=== PATIENT | female | born 1955 | race African-American/Black ===

== ENCOUNTER 2016-11-28 09:54 | Inpatient (IN) | payer BC ==
[~2016-11-28 09:54] MED LIST: CHLORHEXIDINE GLUC HIBICLENS 118 ML BTL TP ONE; ceFAZolin 2 GM/DEXTROSE 100 ML IV ONE
[2016-11-28] MEDS ORDERED: PROPOFOL/EMULSION 500 MG/50 ML BOTTLE IV ONE ×4 (10:06→15:15)
[2016-11-28] MEDS ORDERED: ALBUMIN 5% 250 ML BOTTLE IV ONE (10:09)
[2016-11-28] MEDS ORDERED: DEXMEDETOMIDINE HCL 200 MCG/2 ML VIAL IV ONE (10:11)
[2016-11-28] MEDS ORDERED: fentaNYL 100 MCG/2 ML INJ ONE ×4 (10:21→17:23)
[2016-11-28] MEDS ORDERED: THROMBIN (BOVINE) 5,000 UNIT VIAL TP ONE ×2 (10:23→13:39)
[2016-11-28] MEDS ORDERED: BUPIVACAINE/EPI 0.25% 30 ML SDV ONE (10:23)
[2016-11-28] MEDS ORDERED: BUPIVACAINE 0.25% 30 ML SDV ONE (10:23)
[2016-11-28] MEDS ORDERED: BACITRACIN 50,000 UNITS/10 ML SYR IRR ONE ×2 (10:24→13:40)
[2016-11-28] MEDS ORDERED: LIDOCAINE 1% 2 ML INJ ONE (10:33)
[2016-11-28] MEDS ORDERED: CEFAZOLIN 2 GM/DEXTROSE/100 ML BAG IV ONE (10:40)
[2016-11-28] MEDS ORDERED: LIDOCAINE 1% 2 ML INJ ID PRN (10:51)
[2016-11-28] MEDS ORDERED: LR 1,000 ML IV ONE (10:51)
[2016-11-28 11:14] LABS: ANION GAP 13 mEq/L (8-16); CALCIUM 9.6 mg/dL (8.5-10.4); CARBON DIOXIDE 17 mEq/l (22-31); CHLORIDE 109 mEq/L (97-110); CREATININE 0.7 mg/dL (0.6-1.0); GLOMERULAR FILTRATION RATE > 60; GLUCOSE 85 mg/dL (70-100); POTASSIUM 4.9 mEq/L (3.5-5.2); SODIUM 139 mEq/L (134-144); SPECIMEN HEMOLYSIS 151
[2016-11-28] MEDS ORDERED: MIDAZOLAM 2 MG/2 ML VIAL ONE ×2 (11:20→12:49)
--- NOTE | 2016-11-28 11:25 | PDANEPAE ---
ANE Past Medical History - Cardiovascular History Hx Hypertension: Yes Hx Arrhythmias: Yes Hx Chest Pain: No Hx Coronary Artery / Peripheral Vascular Disease: No Hx Palpitations: Yes - Pulmonary History Hx COPD: Yes Hx Asthma/Reactive Airway Disease: No Hx Recent Upper Respiratory Infection: No Hx Oxygen in Use at Home: No - Neurologic History Hx Cerebrovascular Accident: No Hx Seizures: No Hx Dementia: No - Endocrine History Hx Diabetes: No - Renal History Hx Renal Disorders: Yes - Liver History Hx Hepatic Disorders: No - Neurological & Psychiatric Hx Hx Neurological and Psychiatric Disorders: Yes - Cancer History Hx Cancer: Yes - Congenital Disorder History Hx Congenital Disorders: No - GI History Hx Gastrointestinal Disorders: Yes - Chronic Pain History Chronic Pain: Yes (neck, radiates down shoulders) ANE Review of Systems - Exercise capacity METS (RN): 4 METS ANE Patient History - Allergies Allergies/Adverse Reactions: No Known Allergies Allergy (Verified 11/21/16 11:11) - Home Medications Home Medications: Effexor 11/21/16 [Last Taken 11/27/16] GABAPENTIN 11/21/16 [Last Taken 11/27/16] HCTZ (*) 11/21/16 [Last Taken 11/28/16 08:00] Hydroxyzine HCl 11/21/16 [Last Taken 11/26/16] Lisinopril 11/21/16 [Last Taken 11/28/16 08:00] Losartan Potassium 11/21/16 [Last Taken 11/28/16 08:00] Norvasc 11/21/16 [Last Taken 11/28/16 08:00] PRILOSEC 11/21/16 [Last Taken 11/27/16] CHLOR-TRIMETON 4 mg PO PRN 11/28/16 [Last Taken 11/28/16] - NPO status NPO Since - Liquids (Date): 11/28/16 NPO Since - Liquids (Time): 08:00 NPO Since - Solids (Date): 11/27/16 NPO Since - Solids (Time): 20:00 - Smoking Hx Smoking Status: Light smoker - Family Anes Hx Family Hx Anesthesia Complications: none ANE Labs/Vital Signs - Labs Result Diagrams: 11/28/16 10:40 - Vital Signs Blood Pressure: 198/89 Heart Rate: 70 Respiratory Rate: 16 O2 Sat (%): 97 Height: 154.94 cm Weight: 58.967 kg ANE Physical Exam - Airway Mallampati Score: Class 1 Mouth exam: dentures - Pulmonary Pulmonary: no respiratory distress - Cardiovascular Cardiovascular: regular rate and rhythym - ASA Status ASA Status: III ANE Anesthesia Plan Anesthesia Plan: general endotracheal anesthesia Lines/Monitors: arterial line, additional IV Specialized Airway: video laryngoscope
[2016-11-28] MEDS ORDERED: CITRATE DEXTROSE SOLN 500 ML BAG ONE ×2 (11:31→13:52)
[2016-11-28] MEDS ORDERED: ROCURONIUM 50 MG/5 ML VIAL ONE (12:29)
[2016-11-28] MEDS ORDERED: ONDANSETRON 4 MG/2 ML VIAL ONE (12:29)
[2016-11-28] MEDS ORDERED: LIDOCAINE 2% 5 ML SDV ONE (12:29)
[2016-11-28] MEDS ORDERED: epHEDrine SULFATE 10 MG/ML SYR ONE (12:40)
--- NOTE | 2016-11-28 14:53 | GOP ---
[f rep st] OPERATIVE REPORT DATE OF OPERATION: 11/28/2016 SURGEON: Rainer Aguayo MD COOPER HELPER: Noe Ramos PA-C. ANESTHESIA: General endotracheal. 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 Severe cervical stenosis. Progressive loss of function. 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 Severe cervical stenosis. Progressive loss of function. PROCEDURE PERFORMED: 1. Complete C4-5 and C5-6 anterior cervical diskectomy and arthrodesis with 2 structural PEEK interbody spacers and local autograft. 2. Partial C5 vertebral corpectomy for decompression of spinal canal/spinal cord. 3. Placement of a 43 mm CastleLoc-P LnK anterior cervical plate from C4 through C6. 4. Use of intraoperative microscopy and fluoroscopy. FINDINGS: ESTIMATED BLOOD LOSS: 50 cc. INDICATIONS: The patient is a 60-year-old woman with progressive myelopathic symptoms secondary to multilevel cervical spondylosis and severe cervical stenosis with spinal cord compression. She presents now for anterior posterior decompression and stabilization. DESCRIPTION OF PROCEDURE: After informed consent was obtained, the patient was taken to the operating room and placed in the supine position. The anterior cervical region was prepped and draped in a sterile fashion. After fluoroscopic localization of the correct level, the subcutaneous and intramuscular tissues were infiltrated with local anesthesia. A midline linear incision was then created at the level of the C5 vertebral body. This was carried down to the platysmal layer, which was then incised using the monopolar electrocautery and carried in the avascular plane between the sternocleidomastoid and carotid sheath laterally and the strap muscles, trachea, and esophagus medially, down to the prevertebral fascia, which was carefully incised with Metzenbaum scissors. The C4-5 and C5-6 interspaces were identified and re-verified using intraoperative fluoroscopy. The large osteophytes were carefully removed and harvested for local autograft. The distraction pins were then serially inserted, first at C4-5, then C5-6 with a slight amount of distraction during which time complete diskectomies were performed with preparation of the endplates and removal of the posteriorly protruding osteophytes and posterior longitudinal ligament. There was an extensive amount of drilling required for the superior and inferior endplates of both levels and this amounted to approximately 50% of the vertebral body being drilled away at C5 for a partial C5 vertebral corpectomy in order to adequately decompress the spinal canal and spinal cord. There was quite a large osteophyte which may have been part of the pedicle on the right at the C5- 6 level that was meticulously dissected out and then partially left in place, because I felt that the root was somewhat wrapped around it, and I would cause injury to it if I was more aggressive. The thecal sac was widely decompressed, and the neural foramen was widely decompressed as well bilaterally at both levels. Following this, the wound was copiously irrigated with antibiotic irrigation, and meticulous hemostasis was achieved. The remaining endplates were carefully prepared, and an appropriately sized 11 mm structural PEEK interbody spacer was packed with local autograft in the center. It was then placed in the interspace at C4-5 and C5-6 under fluoroscopic image guidance. The distraction was then removed, and an appropriately sized 43 mm CastleLoc-P LnK anterior cervical plate was then placed and secured with 14 mm self-drilling screws. Following re-verification of good position of the plate screws and interbody spacers using biplanar fluoroscopy, the locking mechanisms were engaged. A drain was placed. The uncovertebral joints were gently packed with residual local autograft along with the central hole of the plate, and the wound was closed in layered fashion using interrupted Vicryl sutures, followed by Steri- Strips on the skin. COMPLICATIONS: None. DISPOSITION: The patient is currently in the process of being repositioned for the posterior portion of the operation. /[id number]/MODL MTDD
--- NOTE | 2016-11-28 15:03 | GOP ---
[f rep st] OPERATIVE REPORT DATE OF OPERATION: 11/28/2016 SURGEON: Rainer Aguayo MD BENCH JEWELER: Noe Ramos PA-C. ANESTHESIA: General endotracheal. 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 Severe cervical stenosis. Progressive loss of function. 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 Severe cervical stenosis. Progressive loss of function. PROCEDURE PERFORMED: 1. C4 through 6 posterior cervical laminectomy for decompression of spinal cord. 2. C4 through 6 posterior segmental (lateral mass screw) fixation and posterolateral fusion with local autograft. 3. Use of intraoperative microscopy and fluoroscopy. FINDINGS: ESTIMATED BLOOD LOSS: 100 cc. COMPLICATIONS: None. INDICATIONS: The patient is a 60-year-old woman with progressive myelopathic symptoms secondary to multilevel cervical spondylosis and severe cervical stenosis with spinal cord compression. She presents now for anterior posterior decompression and stabilization. DESCRIPTION OF PROCEDURE: After the anterior portion of the procedure was completed, the patient was repositioned prone with the head in the Starks hogshead hooper. The posterior cervical region was prepped and draped in a sterile fashion. After fluoroscopic localization of the correct levels, the subcutaneous and intramuscular tissues were infiltrated with local anesthesia. A midline linear incision was then created from approximately C4 through C6. This was carried down the fascial layer, which was then incised using the monopolar electrocautery and carried in the subperiosteal plane along the spinous processes and out the lamina bilaterally. Intraoperative fluoroscopy was again utilized to verify the correct levels. Following this, the dissection was carried out over the facet joints. Intraoperative fluoroscopy was again utilized to verify the correct levels. Following this, lateral mass screw fixation was placed in a standard fashion at C4, C5 and C6 bilaterally. Each individual screw was tested neurophysiologically with monopolar electrical stimulation and interpretation of the potentials by the surgeon. Biplanar fluoroscopy was utilized to verify good position of the screws. The rods were then placed and secured under maximal lordosis. A laminectomy defect was then created from C4 through C6 using the Meteor drill system with a matchstick fluted bur and the Kerrison rongeurs. Meticulous hemostasis was achieved. The wound was copiously irrigated, and the facet joints and lateral portion of the lateral masses were then extensively decorticated, and the local autograft from the laminectomy defects was placed out laterally for a posterolateral fusion from C4 through C6. Following more copious irrigation and meticulous hemostasis , a drain was placed, and the wound was closed in a layered fashion using interrupted Vicryl sutures, followed by Steri-Strips on the skin. DISPOSITION: The patient is currently in the process of being repositioned for extubation. /[id number]/MODL MTDD
[2016-11-28] MEDS ORDERED: SUGAMMADEX SODIUM 200 MG/2 ML VIAL IVP ONE (15:36)
[2016-11-28] MEDS ORDERED: PROMETHAZINE HCL 25 MG/ML INJ IVP PRN (15:40)
[2016-11-28] MEDS ORDERED: NALOXONE HCL 0.4 MG/ML INJ IVP PRN ×2 (15:40→16:01)
[2016-11-28] MEDS ORDERED: ONDANSETRON 4 MG/2 ML VIAL IVP PRN (15:40)
[2016-11-28] MEDS ORDERED: DEXAMETHASONE 4 MG/ML VIAL IVP PRN (15:40)
[2016-11-28] MEDS ORDERED: MEPERIDINE 25 MG/ML SYR IVP PRN (15:40)
[2016-11-28] MEDS ORDERED: ALBUTEROL 3 ML DEYVIAL IH PRN (15:40)
--- NOTE | 2016-11-28 16:00 | PDHPUP ---
History & Physical Update H&P update statement: This history and physical update is based on an assessment of the patient which was completed after admission or registration (within 24 hours), but prior to the surgery/procedure. H&P update: H&P reviewed & patient examined, no change in patient's condition since H&P completed
[2016-11-28] MEDS ORDERED: diphenhydrAMINE 25 MG CAP PO PRN (16:01)
[2016-11-28] MEDS ORDERED: BISACODYL 10 MG SUPP PR PRN (16:01)
[2016-11-28] MEDS ORDERED: ONDANSETRON DISINTEGRATING 4 MG TAB PO PRN (16:01)
[2016-11-28] MEDS ORDERED: HYDROCODONE/APAP 5/325 TAB PO PRN (16:01)
[2016-11-28] MEDS ORDERED: MAGNESIUM HYDROXIDE 30 ML UDCUP PO PRN (16:01)
[2016-11-28] MEDS ORDERED: oxyCODONE IR 5 MG TAB PO PRN (16:01)
[2016-11-28] MEDS ORDERED: LACTULOSE 20 GM/30 ML UDCUP PO PRN (16:01)
--- NOTE | 2016-11-28 16:08 | SOAPPROG ---
SOAP Progress Note Assessment/Plan: Assessment: 60 yo F sp C4-6 ACDF and C4-6 posterior fusion Plan: stable hard collar at all times lovenox on POD #3 please call with neuro changes 11/28/16 16:07 Subjective: + neck pain, no arm pain Objective: Vital Signs Temp Pulse Resp BP Pulse Ox 37.1 C 70 16 198/89 H 97 11/28/16 10:22 11/28/16 11:25 11/28/16 11:25 11/28/16 11:25 11/28/16 11:25 Laboratory Results 11/28/16 10:40 somnolent PERRL, no facial droop TAYLER x 4 + light touch ICD10 Worksheet Patient Problems: Problems Problem Status Onset Fusion of spine of cervical region Acute - ICD10 Problem Qualifiers (1) Fusion of spine of cervical region
[2016-11-28] MEDS ORDERED: LABETALOL HCL 5 MG/ML 20 ML MDV IVP PRN (16:12)
[2016-11-28] MEDS ORDERED: ENALAPRILAT DIHYDRATE 1.25 MG/ML VIAL IVP PRN (16:12)
--- NOTE | 2016-11-28 16:12 | POSTANESTH ---
Post Anesthetic Evaluation Cardiovascular Status: Normal, Stable Respiratory Status: Normal, Stable Level of Consciousness/Mental Status: Can Participate in Eval Pain Control: Adequate, Prn Tx Ordered Nausea/Vomiting Control: Adequate, Prn Tx Ordered Complications Possibly Related to Anesthesia: None Noted
[2016-11-28] MEDS: fentaNYL 100 MCG/2 ML INJ IVP PRN ×4 (16:17→17:30)
[2016-11-28] MEDS ORDERED: ENALAPRILAT DIHYDRATE 1.25 MG/ML VIAL ONE (16:22)
[2016-11-28] MEDS ORDERED: HYDROmorphONE/DILAUDID 1 MG/ML SYR ONE (16:39)
[2016-11-28] MEDS ORDERED: DIAZEPAM 10 MG/2 ML SYR ONE (16:47)
[2016-11-28] MEDS: DIAZEPAM 10 MG/2 ML SYR IVP PRN ×2 (17:26→23:47)
[2016-11-28] MEDS: HYDROmorphONE/DILAUDID 6 MG/30 ML PCA IV PRN (17:51)
[2016-11-28] MEDS: NS 1,000 ML IV SCH (18:04)
[2016-11-28] MEDS: ceFAZolin 2 GM/DEXTROSE 100 ML IV SCH (20:29)
[2016-11-28] MEDS: SENNOSIDES/DOCUSATE SODIUM TAB PO SCH (20:32)
[2016-11-28] MEDS: FAMOTIDINE 20 MG TAB PO SCH (20:33)
[2016-11-28] MEDS: morphINE SR 15 MG TAB PO SCH (20:33)
[2016-11-28] MEDS: ACETAMINOPHEN 500 MG TAB PO SCH (23:46)
[2016-11-28] MEDS: POLYETHYLENE GLYCOL 3350 17 GM PKT PO SCH (23:47)
[2016-11-29] MEDS: HYDROmorphONE/DILAUDID 6 MG/30 ML PCA IV PRN ×2 (02:35→16:00)
[2016-11-29] MEDS: ceFAZolin 2 GM/DEXTROSE 100 ML IV SCH (02:36)
[2016-11-29] MEDS: METHOCARBAMOL 750 MG TAB PO PRN ×2 (02:51→18:31)
[2016-11-29] MEDS: ONDANSETRON 4 MG/2 ML VIAL IVP PRN ×3 (04:56→17:35)
[2016-11-29] MEDS: ACETAMINOPHEN 500 MG TAB PO SCH ×3 (05:56→21:19)
[2016-11-29 06:05] LABS: ANION GAP 11 mEq/L (8-16); CALCIUM 7.9 mg/dL (8.5-10.4); CARBON DIOXIDE 18 mEq/l (22-31); CHLORIDE 111 mEq/L (97-110); CREATININE 0.5 mg/dL (0.6-1.0); GLOMERULAR FILTRATION RATE > 60; GLUCOSE 110 mg/dL (70-100); POTASSIUM 3.1 mEq/L (3.5-5.2); SODIUM 140 mEq/L (134-144)
[2016-11-29 06:12] LABS: HEMATOCRIT 34.8 % (38.0-47.0); HEMOGLOBIN 11.5 g/dL (12.6-16.3); MEAN CELL HEMOGLOBIN 30.7 pg (27.9-34.1); MEAN CELL VOLUME 92.8 fL (81.5-99.8); RED BLOOD CELL COUNT 3.75 10^6/uL (4.18-5.33); RED CELL DISTRIBUTION WIDTH 16.9 % (11.5-15.2)
[2016-11-29] MEDS: hydrALAZINE 20 MG/ML VIAL IVP PRN ×5 (07:09→21:11)
[2016-11-29] MEDS: oxyCODONE IR 5 MG TAB PO PRN (07:10)
--- NOTE | 2016-11-29 07:25 | SOAPPROG ---
SOAP Progress Note Assessment/Plan: Assessment: 60 yo F POD #1 C4-6 ACDF and C4-6 posterior fusion Plan: stable hard collar at all times TAZ x 2 will restart PO meds once pharmacy completes med rec scd/barbara/lovenox on POD #3 transfer to floor later today please call with neuro changes patient was seen with Dr Cueva 11/28/16 16:07 // 07:23 Subjective: + neck pain, no arm pain, no weakness. Objective: Vital Signs Temp Pulse Resp BP Pulse Ox 35.9 C L 72 14 188/58 H 95 11/28/16 23:35 11/29/16 00:02 11/29/16 00:02 11/29/16 07:09 11/29/16 00:02 Laboratory Results 11/29/16 06:00 11/29/16 05:35 11/28/16 11/29/16 11/30/16 05:59 05:59 05:59 Intake Total 1674 Output Total 2260 Balance -586 AAOx4, +FC PERRL, EOMI, no facial droop 5/5 + light touch C/D/I x 2 ICD10 Worksheet Patient Problems: Problems Problem Status Onset Fusion of spine of cervical region Acute - ICD10 Problem Qualifiers (1) Fusion of spine of cervical region
[2016-11-29] MEDS: DIAZEPAM 10 MG/2 ML SYR IVP PRN ×5 (07:34→23:33)
[2016-11-29] MEDS: morphINE SR 15 MG TAB PO SCH ×2 (10:07→21:18)
[2016-11-29] MEDS: FAMOTIDINE 20 MG TAB PO SCH ×2 (10:07→21:18)
[2016-11-29] MEDS: POLYETHYLENE GLYCOL 3350 17 GM PKT PO SCH ×3 (10:46→21:19)
[2016-11-29] MEDS: SENNOSIDES/DOCUSATE SODIUM TAB PO SCH ×2 (10:47→21:19)
[2016-11-29] MEDS: LISINOPRIL 10 MG TAB PO SCH (14:02)
[2016-11-29] MEDS: HYDROCHLOROTHIAZIDE 25 MG TAB PO SCH (14:04)
[2016-11-29] MEDS: VENLAFAXINE XR 150 MG CAP PO SCH (14:18)
[2016-11-29] MEDS: GABAPENTIN 300 MG CAP PO SCH (15:19)
[2016-11-30] MEDS: hydrALAZINE 20 MG/ML VIAL IVP PRN ×5 (00:10→20:31)
[2016-11-30] MEDS: METHOCARBAMOL 750 MG TAB PO PRN (04:11)
[2016-11-30] MEDS: oxyCODONE IR 5 MG TAB PO PRN (04:11)
[2016-11-30] MEDS: NS 1,000 ML IV SCH (04:18)
[2016-11-30] MEDS: ACETAMINOPHEN 500 MG TAB PO SCH ×3 (06:16→20:36)
[2016-11-30] MEDS ORDERED: NON-FORMULARY NEW DRUG (Omeprazole [Prilosec 20 Mg] 20 MG) PO PRN (07:42)
[2016-11-30] MEDS ORDERED: PANTOPRAZOLE SODIUM 40 MG TAB PO PRN (07:50)
--- NOTE | 2016-11-30 08:12 | SOAPPROG ---
SOAP Progress Note Assessment/Plan: Assessment: 60 yo F POD #2 C4-6 ACDF and C4-6 posterior fusion Plan: - cervical collar at all times - TAZ anterior (120), TAZ posterior (165) over last 24 hours, leave in place - still not swallowing well, EXPANSION JOINT FINISHER today for swallow study - will start lovenox tomorrow on POD#3 - to floor, PT/OT - still on SALES DEPARTMENT SUPERVISOR but will switch to orals once swallowing is better 11/30/16 08:11 11/30/16 08:12 Subjective: c/o neck pain, collar is uncomfortable Objective: Vital Signs Temp Pulse Resp BP Pulse Ox 36.6 C 96 11 L 169/66 H 97 11/30/16 08:00 11/30/16 08:00 11/30/16 08:00 11/30/16 08:00 11/30/16 08:00 Laboratory Results 11/29/16 06:00 11/29/16 05:35 11/29/16 11/30/16 12/01/16 05:59 05:59 05:59 Intake Total 1674 1407 Output Total 2260 375 Balance -586 1032 AAOx3, full strength x 4, no drift, sensation intact, dressings c/d/i - Pending Discharge Pending Discharge Within 24 Hours: No Pending Discharge Within 48 Hours: Yes Pending Discharge Date: 12/02/16 Pending Discharge Time: 11:00 ICD10 Worksheet Patient Problems: Problems Problem Status Onset Fusion of spine of cervical region Acute
[2016-11-30] MEDS: HYDROmorphONE/DILAUDID 6 MG/30 ML PCA IV PRN (09:37)
[2016-11-30] MEDS: ONDANSETRON 4 MG/2 ML VIAL IVP PRN (09:57)
[2016-11-30] MEDS: HYDROCHLOROTHIAZIDE 25 MG TAB PO SCH (10:01)
[2016-11-30] MEDS: FAMOTIDINE 20 MG TAB PO SCH ×2 (10:01→20:36)
[2016-11-30] MEDS: GABAPENTIN 300 MG CAP PO SCH (10:01)
[2016-11-30] MEDS: SENNOSIDES/DOCUSATE SODIUM TAB PO SCH ×2 (10:02→20:36)
[2016-11-30] MEDS: POLYETHYLENE GLYCOL 3350 17 GM PKT PO SCH ×3 (10:02→20:37)
[2016-11-30] MEDS: LISINOPRIL 10 MG TAB PO SCH (10:02)
[2016-11-30] MEDS: VENLAFAXINE XR 150 MG CAP PO SCH (10:02)
[2016-11-30] MEDS: morphINE SR 15 MG TAB PO SCH ×2 (10:02→20:36)
--- NOTE | 2016-11-30 10:06 | PDINTPN ---
Advice Line Rn Progress Note Assessment/Plan: Assessment/plan: 60 F s/p cervical laminectomy/decompression without complications * neck surgery- stable and using collar (changed today). Pain controlled * HTN- stable on norvasc, hydralazine, HCTZ, zestril, * OK for floor Objective: Vital Signs Temp Pulse Resp BP Pulse Ox 36.6 C 96 11 L 158/58 H 97 11/30/16 08:00 11/30/16 08:00 11/30/16 08:00 11/30/16 09:05 11/30/16 08:00 Laboratory Results 11/29/16 06:00 11/29/16 05:35 11/29/16 11/30/16 12/01/16 05:59 05:59 05:59 Intake Total 1674 1407 Output Total 2260 375 Balance -586 1032 Physical Exam - Physical Exam General Appearance: WD/WN, alert, other (c-collar) EENT: PERRL/EOMI Neck: limited range of motion Respiratory: lungs clear, normal breath sounds, No respiratory distress Cardiac/Chest: regular rate, rhythm, No edema Abdomen: non-tender, soft, No distended Skin: normal color, warm/dry Lymphatic: no adenopathy Extremities: non-tender, No pedal edema Neuro/Psych: alert, normal mood/affect, oriented x 3 ICD10 Worksheet Patient Problems: Problems Problem Status Onset Fusion of spine of cervical region Acute
[2016-11-30] MEDS ORDERED: PROTOCOL POTASSIUM 1 DOSE MISC PRN (10:47)
[2016-11-30] MEDS: POTASSIUM Cl (KCl) 100 ML IV SCH ×4 (10:56→19:06)
[2016-11-30] MEDS: DIAZEPAM 10 MG/2 ML SYR IVP PRN (14:42)
[2016-12-01] MEDS: hydrALAZINE 20 MG/ML VIAL IVP PRN ×3 (03:31→15:57)
[2016-12-01 04:04] LABS: POTASSIUM 3.3 mEq/L (3.5-5.2)
[2016-12-01] MEDS: POTASSIUM Cl (KCl) 100 ML IV SCH ×3 (05:09→09:50)
[2016-12-01] MEDS: NS 1,000 ML IV SCH (05:09)
[2016-12-01] MEDS: ACETAMINOPHEN 500 MG TAB PO SCH ×3 (06:06→20:54)
[2016-12-01] MEDS: ENOXAPARIN 40 MG/0.4 ML SYR SC SCH (08:37)
[2016-12-01] MEDS: HYDROCHLOROTHIAZIDE 25 MG TAB PO SCH (08:47)
[2016-12-01] MEDS: GABAPENTIN 300 MG CAP PO SCH (08:47)
[2016-12-01] MEDS: LISINOPRIL 10 MG TAB PO SCH (08:48)
[2016-12-01] MEDS: POLYETHYLENE GLYCOL 3350 17 GM PKT PO SCH ×2 (08:48→15:57)
[2016-12-01] MEDS: SENNOSIDES/DOCUSATE SODIUM TAB PO SCH (08:48)
[2016-12-01] MEDS: VENLAFAXINE XR 150 MG CAP PO SCH (08:48)
[2016-12-01] MEDS: morphINE SR 15 MG TAB PO SCH (08:48)
[2016-12-01] MEDS: HYDROmorphONE/DILAUDID 6 MG/30 ML PCA IV PRN (09:08)
--- NOTE | 2016-12-01 09:25 | SOAPPROG ---
SOAP Progress Note Assessment/Plan: Assessment: 60 yo F POD #3 C4-6 ACDF and C4-6 posterior fusion Plan: - cervical collar at all times - TAZ anterior (30), TAZ posterior (120) over last 24 hours, likely d/c anterior drain - NPO due to swelling, difficulty swallowing, continue PROFESSOR OF LANGUAGES, pharmacy will convert BP meds to IV - lovenox for DVT PPX - PT/OT - consider rehab - still on CAFETERIA ASSISTANT but will switch to orals once swallowing is better 11/30/16 08:11 11/30/16 08:12 12/01/16 09:23 Subjective: c/o neck pain, relatively stable Objective: Vital Signs Temp Pulse Resp BP Pulse Ox 36.8 C 107 H 18 139/67 H 95 12/01/16 07:35 12/01/16 09:08 12/01/16 07:35 12/01/16 09:08 12/01/16 07:35 Laboratory Results 11/29/16 06:00 12/01/16 03:35 11/30/16 12/01/16 12/02/16 05:59 05:59 05:59 Intake Total 1407 1393 Output Total 375 455 Balance 1032 938 AAOx3, full strength/sensation, no drift, dressings c/d/i - Pending Discharge Pending Discharge Within 24 Hours: No Pending Discharge Within 48 Hours: Yes Pending Discharge Date: 12/03/16 Pending Discharge Time: 11:00 ICD10 Worksheet Patient Problems: Problems Problem Status Onset Fusion of spine of cervical region Acute
[2016-12-01] MEDS: FAMOTIDINE 20 MG/NACL 50 ML IV SCH ×2 (09:33→21:37)
[2016-12-01] MEDS: ENALAPRILAT DIHYDRATE 1.25 MG/ML VIAL IV SCH ×2 (11:44→18:35)
[2016-12-01] MEDS ORDERED: ALTEPLASE 2 MG VIAL IVP PRN (17:06)
[2016-12-01] MEDS: DIAZEPAM 10 MG/2 ML SYR IVP PRN (20:00)
[2016-12-01 22:57] LABS: POTASSIUM 3.4 mEq/L (3.5-5.2)
[2016-12-01] MEDS: POTASSIUM Cl (KCl) 50 ML IV SCH (23:26)
[2016-12-02] MEDS: POTASSIUM Cl (KCl) 50 ML IV SCH ×5 (00:04→18:06)
[2016-12-02] MEDS: ENALAPRILAT DIHYDRATE 1.25 MG/ML VIAL IV SCH ×4 (00:07→17:30)
[2016-12-02] MEDS: hydrALAZINE 20 MG/ML VIAL IVP PRN ×5 (00:43→20:17)
[2016-12-02] MEDS: ACETAMINOPHEN 500 MG TAB PO SCH (01:30)
[2016-12-02] MEDS: DIAZEPAM 10 MG/2 ML SYR IVP PRN (04:39)
[2016-12-02 05:31] LABS: POTASSIUM 3.5 mEq/L (3.5-5.2)
--- NOTE | 2016-12-02 06:43 | SOAPPROG ---
SOAP Progress Note Assessment/Plan: Assessment: 60 yo female POD #4 sp C4-6 A/P cervical fusion. currently floor status in ICU room doing OK but unable to swallow, speech following pain controlled Plan: swallow eval today Continue hard collar 12/02/16 06:41 Subjective: asleep, wakes easily, but remains groggy eyes open and follows commands Objective: Vital Signs Temp Pulse Resp BP Pulse Ox 37.5 C 100 14 184/74 H 95 12/02/16 00:00 12/02/16 04:00 12/02/16 04:00 12/02/16 06:03 12/02/16 04:00 Laboratory Results 11/29/16 06:00 12/02/16 04:45 12/01/16 12/02/16 12/03/16 05:59 05:59 05:59 Intake Total 1393 1350 Output Total 455 64 Balance 938 1286 Neuro: ROSE, sens +LT follows commands x 4 sensation +LT equal strength in arms/hand Incision x 2 CDI no Rj ICD10 Worksheet Patient Problems: Problems Problem Status Onset Fusion of spine of cervical region Acute
[2016-12-02] MEDS ORDERED: DEXAMETHASONE 10 MG/ML VIAL IVP ONE (07:45)
[2016-12-02] MEDS: ENOXAPARIN 40 MG/0.4 ML SYR SC SCH (09:09)
[2016-12-02] MEDS: ACETAMINOPHEN 650 MG SUPP PR SCH ×2 (09:09→16:11)
[2016-12-02] MEDS: FAMOTIDINE 20 MG/NACL 50 ML IV SCH ×2 (09:10→20:17)
[2016-12-02] MEDS: HYDROmorphONE/DILAUDID 6 MG/30 ML PCA IV PRN (12:32)
--- NOTE | 2016-12-02 14:23 | GCON ---
[f rep st] CONSULTATION DATE OF CONSULTATION: 12/02/2016 REFERRING PHYSICIAN: Rainer Aguayo MD REASON FOR CONSULTATION: Management of hypertension, dysphagia. HISTORY OF PRESENT ILLNESS: The patient is a 60-year-old female, with past medical history of hypertension, valvular disease, severe cervical spondylitic myelopathy with cord henry hiren, who underwent C4 through C6 ACDF and C4 through 6 posterior fusion on 11/28. She is currently postop day 4 with difficulty swallowing. She has also had uncontrolled hypertension, which she rep orts is chronic for her. She is on several antihypertensives. Most of her care previously has been done in [place], [place]. Currently, she denies any chest pain, shortness of breath. She had a mil d headache this morning. Complaining of numbness in her hands, which is new since her surgery. She initially fell in [facility] in July 2014, and since that time she had neck pain, bilateral [place] nd and feet numbness and tingling. She reports a constant dull headache and occasional patrol agent strengt h loss and difficulty with fine motor tasks. Also complained of continued low back pain and bilater al buttock posterior, and calf pain. REVIEW OF SYSTEMS: I completed a 10-point review of systems, negative except as noted in HPI. PAST MEDICAL HISTORY: 1. Hypertension. 2. "Leaky valve.". 3. Lumbar back pain. 4. Bilateral hand and feet numbness. 5. GERD. 6. Arthritis. PAST SURGICAL HISTORY: Diskectomy in 1992. SOCIAL HISTORY: Lives in [place]. She is here for surgery and staying with her daughter in [place]. Smoked a pack of cigarettes for 4 years. No alcohol or illicits. ALLERGIES: No known drug allergies. HOME MEDICATIONS: 1. Naproxen 220 mg b.i.d. p.r.n. 2. Ranitidine 150 mg daily. 3. Flexeril 10 mg q.h.s. 4. Prilosec 20 mg daily. 5. Norvasc 10 daily. 6. Lisinopril 10 daily. 7. [place] 1-2 tabs q.4 hours p.r.n. 8. Hydroxyzine. 9. Hydrochlorothiazide 25 daily. 10. Venlafaxine 150 mg daily. 11. Neurontin 300 mg daily. PHYSICAL EXAMINATION: VITAL SIGNS: Temperature 37.2, blood pressure 163/66, heart rate 98-109, 100 % on room air. GENERAL: Patient is sitting up in bed, uncomfortable, shifting around. HEENT: Pup ils are small, but round and reactive. Oropharynx is clear. CV: Tachy, but regular. No murmurs, gallops, or rubs. LUNGS: Clear to auscultation bilaterally. ABDOMEN: Soft, nontender, nondistend ed. Positive bowel sounds. : No [place]. No suprapubic tenderness. MUSCULOSKELETAL: Moving all 4 extremities. Hard collar neck brace. NEURO: 2 through 12 intact. PSYCH: Alert and oriented x 3. Flat affect. LABORATORIES: WBC 12.9, hemoglobin 11, hematocrit 34, platelets 241 on 11/29. Potassium is 3.5 tod ay. IMAGING: Chest x-ray, personally reviewed by me on 12/01/2016; PICC is in good placement. Cardiome alyssa with mild pulmonary vascular prominence. No overt edema or effusion. Cervical spine on 11/29/2016; postoperative changes of the anterior and posterior cervical fusion. Posterior rods and screws are intact. ASSESSMENT AND PLAN: 1. Acute on chronic neck pain: Secondary to spinal surgery. Patient is currently on a PROJECT CONTROL OFFICER. Recom mend that she continue using this. She is unable to take orals at this time. Once she is able to s wallow we will add this for better control including gabapentin and oxycodone. 2. Uncontrolled hypertension: Patient is on several antihypertensives at home. Currently, she is unable to take orals due to dysphagia. We will increase Vasotec to 2.5 mg q.6, as well as p.r.n. hy dralazine. 3. Dysphagia. Suspect edema secondary to surgery. She was dosed Decadron once today. Awaiting vi tasia swallow evaluation. 4. Hypokalemia. Check a magnesium. Replete on potassium protocol. 5. Questionable valvular disease: I am awaiting records from [facility], where she received care previously. 6. Gastroesophageal reflux disease. We will add on famotidine. 7. Coronary artery disease. She is not on beta arianne or statin. We will review her records. 8. Diet: N.p.o. given dysphagia. 9. Deep venous thrombosis prophylaxis: Sequential compression devices. Thank you for this consultation. We will follow along. Please call if questions. /[id number]/MODL
[2016-12-03] MEDS: ENALAPRILAT DIHYDRATE 1.25 MG/ML VIAL IV SCH ×4 (00:07→18:32)
[2016-12-03] MEDS: ACETAMINOPHEN 650 MG SUPP PR SCH ×5 (00:08→23:08)
[2016-12-03] MEDS: hydrALAZINE 20 MG/ML VIAL IVP PRN ×4 (02:54→20:11)
[2016-12-03] MEDS: DIAZEPAM 10 MG/2 ML SYR IVP PRN ×2 (03:08→11:07)
[2016-12-03] MEDS: NS 1,000 ML IV SCH (03:09)
[2016-12-03 06:09] LABS: ANION GAP 13 mEq/L (8-16); CALCIUM 9.1 mg/dL (8.5-10.4); CARBON DIOXIDE 20 mEq/l (22-31); CHLORIDE 111 mEq/L (97-110); CREATININE 0.6 mg/dL (0.6-1.0); GLOMERULAR FILTRATION RATE > 60; GLUCOSE 98 mg/dL (70-100); MAGNESIUM 2.5 mg/dL (1.6-2.3); POTASSIUM 3.4 mEq/L (3.5-5.2); SODIUM 144 mEq/L (134-144)
[2016-12-03] MEDS: POTASSIUM Cl (KCl) 100 ML IV SCH ×5 (08:38→23:07)
[2016-12-03] MEDS: FAMOTIDINE 20 MG/NACL 50 ML IV SCH ×2 (08:38→20:20)
[2016-12-03] MEDS: ENOXAPARIN 40 MG/0.4 ML SYR SC SCH (08:38)
--- NOTE | 2016-12-03 08:44 | NEUSURGPN ---
Assessment/Plan: Assessment: 60 yo female POD #5 sp C4-6 A/P cervical fusion. currently floor status in ICU room doing OK but unable to swallow, speech following pain controlled Plan: Patient did not pass video swallow Patient will need dobhoff vs peg - will discuss with Dr Cueva to see how he would like to proceed PT/OT/PLASTIC MIXER Continue hard collar posterior TAZ had 10cc out, will discuss removal with Dr Cueva Call NS with any neuro changes Subjective: Pt resting in bed, collar on. Pain well controlled. Objective: AAOx3 NAD VSS MAEx4 Motor 5/5 BUE/BLE C collar on Incisions dressed cdi +LT Urinary Catheter in Place: No Catheter Insertion Date: 11/28/16 - Physician Discussed Patient with : [facility] Physical Exam - Vitals, I&O, Labs I and O 12/02/16 12/03/16 12/04/16 05:59 05:59 05:59 Intake Total 1350 1627 Output Total 64 1011 Balance 1286 616 Intake: IV Intake (ml) 1350 736 IV Infused (ml) 891 Ns 1,000 ml @ 75 mls/hr 891 IV CONT AVIS Rx#: [id number] Output: Urine (ml) 4 1001 Bedside Commode 200 Incontinence 4 801 TAZ Drain Output (ml) 60 10 #2 Posterior Neck 60 10 Other: Number of Voids Bedside Commode 6 3 Incontinence 3 4 Vital Signs Temp Pulse Resp BP Pulse Ox 36.9 C 96 18 179/63 H 95 12/03/16 08:00 12/03/16 08:00 12/03/16 08:00 12/03/16 08:00 12/03/16 08:00 Laboratory Results 11/29/16 06:00 12/03/16 05:30 ICD10 Worksheet Patient Problems: Problems Problem Status Onset Fusion of spine of cervical region Acute
--- NOTE | 2016-12-03 10:00 | HOSPPROG ---
Hospitalist Progress Note Assessment/Plan: #Dysphagia: due to prevertebral edema. IR to place Dobhoff #Accelerated HTN: will dose orals today #Headache: she attributes to Effexor w/d. BL SBP 170s. No CP. Cont IV until tube placed #Depression: resume Effexor #POD 5 C4-6 A/P fusion: collar in place #Valvular disease: unclear. Awaiting OSH. Caution with IVFs #Acute on chronic pain: PRN opioids, Valium #GERD: Famotidine #Diet: start tube feeds today #DVT px: SCDs #Disp: please call if questions Subjective: pain in neck 10/23. Has headache Objective: Vital Signs Temp Pulse Resp BP Pulse Ox 36.9 C 96 18 179/63 H 95 12/03/16 08:00 12/03/16 08:00 12/03/16 08:00 12/03/16 08:00 12/03/16 08:00 Laboratory Results 11/29/16 06:00 12/03/16 05:30 12/02/16 12/03/16 12/04/16 05:59 05:59 05:59 Intake Total 1350 1627 Output Total 64 1011 Balance 1286 616 - Physical Exam Constitutional: uncomfortable Eyes: PERRL Ears, Nose, Mouth, Throat: other (neck brace in place) Cardiovascular: regular rate and rhythym, no murmur, rub, or gallop Respiratory: no respiratory distress Gastrointestinal: normoactive bowel sounds, soft, non-tender abdomen Genitourinary: no bladder fullness Skin: warm Musculoskeletal: full muscle strength Neurologic: AAOx3, CN II-XII Intact Psychiatric: interacting appropriately ICD10 Worksheet Patient Problems: Problems Problem Status Onset Fusion of spine of cervical region Acute
[2016-12-03] MEDS: HYDROmorphONE/DILAUDID 6 MG/30 ML PCA IV PRN (10:05)
[2016-12-03] MEDS ORDERED: LIDOCAINE 2% JELLY 20 ML (UROJECT) ONE (11:30)
[2016-12-03 19:00] LABS: POTASSIUM 3.6 mEq/L (3.5-5.2)
[2016-12-04] MEDS: POTASSIUM Cl (KCl) 100 ML IV SCH (01:08)
[2016-12-04] MEDS: ENALAPRILAT DIHYDRATE 1.25 MG/ML VIAL IV SCH ×5 (01:11→22:55)
[2016-12-04 06:32] LABS: HEMATOCRIT 31.2 % (38.0-47.0); HEMOGLOBIN 10.3 g/dL (12.6-16.3); MEAN CELL HEMOGLOBIN 30.4 pg (27.9-34.1); RED BLOOD CELL COUNT 3.39 10^6/uL (4.18-5.33); RED CELL DISTRIBUTION WIDTH 16.9 % (11.5-15.2)
[2016-12-04 06:57] LABS: ANION GAP 15 mEq/L (8-16); CALCIUM 9.2 mg/dL (8.5-10.4); CARBON DIOXIDE 19 mEq/l (22-31); CHLORIDE 107 mEq/L (97-110); CREATININE 0.6 mg/dL (0.6-1.0); GLOMERULAR FILTRATION RATE > 60; GLUCOSE 78 mg/dL (70-100); POTASSIUM 3.9 mEq/L (3.5-5.2); SODIUM 141 mEq/L (134-144)
[2016-12-04] MEDS: FAMOTIDINE 20 MG/NACL 50 ML IV SCH ×2 (07:41→21:17)
[2016-12-04] MEDS: ACETAMINOPHEN 650 MG SUPP PR SCH ×4 (07:43→22:50)
[2016-12-04] MEDS ORDERED: POTASSIUM Cl (KCl) 50 ML IV ONE (07:53)
[2016-12-04] MEDS: DIAZEPAM 10 MG/2 ML SYR IVP PRN ×2 (08:52→11:14)
[2016-12-04] MEDS: hydrALAZINE 20 MG/ML VIAL IVP PRN (08:52)
--- NOTE | 2016-12-04 12:39 | SOAPPROG ---
SOAP Progress Note Assessment/Plan: Assessment: 60 yo female POD #5 sp C4-6 A/P cervical fusion. doing OK but unable to swallow, speech following and plan is for PEG with IR as she did not tolerate Dobhoff. pain controlled Neuro intact and stable elevated BP - medicine aware and are adjusting BP meds. Pain is well controlled at this time. Plan: PEG with IR today. Continue hard collar PT/OT as tolerated HTN per medicine 12/04/16 12:39 12/04/16 12:40 Subjective: awake, alert, no new complaints. denies new weakness or tingling. Objective: Vital Signs Temp Pulse Resp BP Pulse Ox 36.5 C 100 20 170/73 H 97 12/04/16 12:08 12/04/16 12:08 12/04/16 12:08 12/04/16 12:08 12/04/16 12:08 Laboratory Results 12/04/16 06:25 12/04/16 06:25 12/03/16 12/04/16 12/05/16 05:59 05:59 05:59 Intake Total 1627 350 0 Output Total 1011 1100 Balance 616 -750 0 Neuro: Taylor sens +LT 5/5 bilateral upper ext strength in bic/tric/delt ambulatory Incision x 2: CDI no JPs ICD10 Worksheet Patient Problems: Problems Problem Status Onset Fusion of spine of cervical region Acute
[2016-12-04] MEDS ORDERED: LIDOCAINE 1% 300 MG/30 ML SDV ONE (15:46)
--- NOTE | 2016-12-04 16:08 | PDANEPAE ---
ANE History of Present Illness s/p A/P cervical fusion ANE Past Medical History - Cardiovascular History Hx Hypertension: Yes Hx Arrhythmias: Yes Hx Chest Pain: No Hx Coronary Artery / Peripheral Vascular Disease: No Hx CHF / Valvular Disease: Yes Hx Palpitations: Yes - Pulmonary History Hx COPD: No Hx Asthma/Reactive Airway Disease: No Hx Recent Upper Respiratory Infection: No Hx Oxygen in Use at Home: No - Neurologic History Hx Cerebrovascular Accident: No Hx Seizures: No Hx Dementia: No - Endocrine History Hx Diabetes: No - Renal History Hx Renal Disorders: Yes - Liver History Hx Hepatic Disorders: No - Neurological & Psychiatric Hx Hx Neurological and Psychiatric Disorders: Yes - Cancer History Hx Cancer: Yes - Congenital Disorder History Hx Congenital Disorders: No - GI History Hx Gastrointestinal Disorders: Yes - Chronic Pain History Chronic Pain: Yes (neck, radiates down shoulders) ANE Review of Systems - Exercise capacity Exercise capacity: >=4 METS METS (RN): 4 METS - Systems Constitutional: Reports: malaise EENMT: Reports: throat swelling (paravertebral swelling, no vocal changes) Cardiac: Reports: no symptoms, lightheadedness Respiratory: Reports: no symptoms Neurological: Reports: numbness, paresthesia (b hands/feet) ANE Patient History - Allergies Allergies/Adverse Reactions: No Known Allergies Allergy (Verified 11/21/16 11:11) - Home Medications Home Medications: Cyclobenzaprine [Cyclobenzaprine HCl] 10 mg PO HS 11/29/16 [Last Taken Unknown] Gabapentin [Neurontin 300 MG (*)] 300 mg PO DAILY 11/29/16 [Last Taken Unknown] Hydrochlorothiazide [HCTZ (*)] 25 mg PO DAILY 11/29/16 [Last Taken Unknown] Hydrocodone/Acetaminophen [[place] 5/325 (*)] 1 - 2 each PO Q4 11/29/16 [Last Taken Unknown] Lisinopril [Zestril 10 mg (*)] 10 mg PO DAILY 11/29/16 [Last Taken Unknown] Naproxen Sodium [Aleve 220 MG (*)] 220 mg PO BID PRN 11/29/16 [Last Taken Unknown] Omeprazole [Prilosec 20 mg] 20 mg PO DAILY PRN 11/29/16 [Last Taken Unknown] Ranitidine HCl [Taladine] 150 mg PO DAILY PRN 11/29/16 [Last Taken Unknown] Venlafaxine HCl [Venlafaxine HCl ER] 150 mg PO DAILY 11/29/16 [Last Taken Unknown] amLODIPine BESYLATE [Norvasc 10 mg (*)] 10 mg PO DAILY 11/29/16 [Last Taken Unknown] hydrOXYzine HCL [hydrOXYzine HCL (RX)] 25 mg PO HS PRN 11/29/16 [Last Taken Unknown] - NPO status NPO Since - Liquids (Date): 11/30/16 NPO Since - Liquids (Time): 12:00 NPO Since - Solids (Date): 11/30/16 NPO Since - Solids (Time): 12:00 - Smoking Hx Smoking Status: Light smoker - Alcohol Use Alcohol Use: None - Family Anes Hx Family Hx Anesthesia Complications: none ANE Labs/Vital Signs - Labs Result Diagrams: 12/04/16 06:25 12/04/16 06:25 - Vital Signs Blood Pressure: 177/81 Heart Rate: 96 Respiratory Rate: 16 O2 Sat (%): 95 Height: 154.94 cm Weight: 58.967 kg ANE Physical Exam - Airway Neck exam: C-collar in place Mallampati Score: Class 3 - Pulmonary Pulmonary: no respiratory distress - Cardiovascular Cardiovascular: regular rate and rhythym - ASA Status ASA Status: III ANE Anesthesia Plan Anesthesia Plan: general endotracheal anesthesia Specialized Airway: video laryngoscope
[2016-12-04] MEDS ORDERED: PROPOFOL 200 MG/20 ML VIAL ONE (16:13)
[2016-12-04] MEDS ORDERED: ROCURONIUM 50 MG/5 ML VIAL ONE (16:13)
[2016-12-04] MEDS ORDERED: LIDOCAINE 2% 5 ML SDV ONE (16:13)
[2016-12-04] MEDS ORDERED: fentaNYL 100 MCG/2 ML INJ ONE ×2 (16:14→17:04)
[2016-12-04] MEDS ORDERED: PHENYLEPHRINE HCL 100 MCG/ML SYR ONE (16:29)
[2016-12-04] MEDS ORDERED: SUGAMMADEX SODIUM 200 MG/2 ML VIAL IVP ONE (16:44)
--- NOTE | 2016-12-04 17:09 | HOSPPROG ---
Hospitalist Progress Note Assessment/Plan: #Dysphagia: due to prevertebral edema. IR could not place Dobhoff. 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 #Depression: resume Effexor (changed to quick-release for PEG) #POD 6 C4-6 A/P fusion: collar in place #Valvular disease: mitral regurgitation per her report. Euvolemic. Careful with IVFs. OSH pending #Acute on chronic pain: PRN opioids, Valium #GERD: Famotidine #Diet: will start tube feeds #DVT px: SCDs #Disp: please call if questions Subjective: pain better controlled today. Headache improved Objective: Vital Signs Temp Pulse Resp BP Pulse Ox 36.3 C 96 16 177/81 H 95 12/04/16 15:26 12/04/16 16:12 12/04/16 16:12 12/04/16 16:12 12/04/16 16:12 Laboratory Results 12/04/16 06:25 12/04/16 06:25 12/03/16 12/04/16 12/05/16 05:59 05:59 05:59 Intake Total 1627 350 0 Output Total 1011 1100 Balance 616 -750 0 - Physical Exam Constitutional: other (appears brighter today) Eyes: PERRL Ears, Nose, Mouth, Throat: moist mucous membranes, other (hard collar in place. Dressing C/D/I) Cardiovascular: regular rate and rhythym, systolic murmur, No edema Respiratory: no respiratory distress, no rales or rhonchi Gastrointestinal: normoactive bowel sounds, soft, non-tender abdomen Genitourinary: no bladder fullness Skin: warm Musculoskeletal: full muscle strength Neurologic: AAOx3, CN II-XII Intact Psychiatric: interacting appropriately ICD10 Worksheet Patient Problems: Problems Problem Status Onset Fusion of spine of cervical region Acute
--- NOTE | 2016-12-04 17:11 | POSTOPPROG ---
Post Op Note Date of Operation: 12/04/16 Surgeon: Tere Fang Anesthesia: GET(General Endotracheal) Pre-op Diagnosis: cervical fusion Post-op Diagnosis: same Indication: swelling Procedure: G-tube placement Findings: see report Inf/Abcess present in the surg proc area at time of surgery?: No Depth: Superfical (Skin SQ) EBL: Minimal Complications: none
[2016-12-04] MEDS: NS 1,000 ML IV SCH (18:00)
[2016-12-04 19:59] LABS: POTASSIUM 4.1 mEq/L (3.5-5.2)
[2016-12-04] MEDS: HYDROmorphONE/DILAUDID 6 MG/30 ML PCA IV PRN (22:50)
[2016-12-05] MEDS: VENLAFAXINE HCL 75 MG TAB TUBE SCH ×3 (01:31→22:55)
[2016-12-05] MEDS: hydrALAZINE 20 MG/ML VIAL IVP PRN ×3 (04:40→15:12)
[2016-12-05] MEDS: ENALAPRILAT DIHYDRATE 1.25 MG/ML VIAL IV SCH ×2 (05:04→11:50)
[2016-12-05 05:32] LABS: ANION GAP 13 mEq/L (8-16); CALCIUM 9.2 mg/dL (8.5-10.4); CARBON DIOXIDE 20 mEq/l (22-31); CHLORIDE 108 mEq/L (97-110); CREATININE 0.6 mg/dL (0.6-1.0); GLOMERULAR FILTRATION RATE > 60; GLUCOSE 82 mg/dL (70-100); SODIUM 141 mEq/L (134-144)
--- NOTE | 2016-12-05 05:52 | SOAPPROG ---
SOAP Progress Note Assessment/Plan: Assessment: 60 yo female POD #7 sp C4-6 A/P cervical fusion. doing OK but unable to swallow, speech following PEG placed by IR on 12/04 pain controlled Neuro intact and stable Plan: Tube feeds when cleared for use Continue hard collar PT/OT as tolerated HTN per medicine Subjective: awake, alert, comfortable. no new neuro changes. Reports mild tenderness at Gtube site Objective: Vital Signs Temp Pulse Resp BP Pulse Ox 36.4 C 90 15 158/76 H 100 12/04/16 23:54 12/05/16 03:31 12/05/16 03:31 12/05/16 04:30 12/05/16 03:31 Laboratory Results 12/04/16 06:25 12/05/16 05:00 12/03/16 12/04/16 12/05/16 05:59 05:59 05:59 Intake Total 1627 350 400 Output Total 1011 1100 305 Balance 616 -750 95 Neuro: ROSE, sens +LT incision x 2 CDI no JPs ICD10 Worksheet Patient Problems: Problems Problem Status Onset Fusion of spine of cervical region Acute
[2016-12-05] MEDS: ENOXAPARIN 40 MG/0.4 ML SYR SC SCH (07:51)
[2016-12-05] MEDS: ACETAMINOPHEN 650 MG SUPP PR SCH (07:51)
[2016-12-05] MEDS: FAMOTIDINE 20 MG/NACL 50 ML IV SCH ×2 (07:52→22:56)
--- NOTE | 2016-12-05 13:50 | HOSPPROG ---
Hospitalist Progress Note Assessment/Plan: 60 yo female visiting her daughter from [place], [place] and after obtaining a 3rd neurosurgical opinion from Dr. Cueva, underwent C4-6 A/P fusion and has developed dysphagia and aspiration requiring PEG placement and tube feeds. #Dysphagia: due to post-op prevertebral edema. PEG placed yesterday (IR unable to place dobhoff). Dietary consult requested to start tube feeds this evening. Hopefully her swallow function will improve. #Acute neck pain: POD #6 C4-6 A/P fusion - collar in place. 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 Add back oral meds per tube today and try to wean off [employer]OR [employer] WORK #Accelerated HTN: resume home meds per tube #Headache: improved. #Depression: resume Effexor (changed to quick-release for PEG) per tube #Valvular disease: mitral regurgitation per her report. Euvolemic. Careful with IVFs. OSH records pending #Acute on chronic pain: PRN opioids, Valium #GERD: Famotidine #Diet: starting tube feeds today #DVT px: SCDs #Disp: please call if questions Subjective: Pt is hungry. Tolerated PEG placement. No fevers. No N/V. Objective: Vital Signs Temp Pulse Resp BP Pulse Ox 36.6 C 85 16 156/77 H 98 12/05/16 07:34 12/05/16 12:00 12/05/16 12:00 12/05/16 11:50 12/05/16 12:00 Laboratory Results 12/04/16 06:25 12/05/16 05:00 12/04/16 12/05/16 12/06/16 05:59 05:59 05:59 Intake Total 350 400 Output Total 1100 305 Balance -750 95 - Physical Exam Constitutional: no apparent distress Eyes: PERRL Ears, Nose, Mouth, Throat: moist mucous membranes Cardiovascular: regular rate and rhythym Respiratory: no respiratory distress, clear to auscultation Gastrointestinal: normoactive bowel sounds, soft, non-tender abdomen Skin: warm Musculoskeletal: full muscle strength Neurologic: AAOx3 Psychiatric: interacting appropriately ICD10 Worksheet Patient Problems: Problems Problem Status Onset Fusion of spine of cervical region Acute
[2016-12-05] MEDS ORDERED: MAGNESIUM HYDROXIDE 30 ML UDCUP TUBE PRN (14:03)
[2016-12-05] MEDS ORDERED: LACTULOSE 20 GM/30 ML UDCUP TUBE PRN (14:03)
[2016-12-05] MEDS ORDERED: ONDANSETRON DISINTEGRATING 4 MG TAB TUBE PRN (14:03)
[2016-12-05] MEDS: ACETAMINOPHEN 500 MG TAB TUBE SCH ×2 (15:12→22:55)
[2016-12-05] MEDS: POLYETHYLENE GLYCOL 3350 17 GM PKT TUBE SCH ×2 (16:55→22:54)
[2016-12-05] MEDS: oxyCODONE IR 5 MG TAB TUBE PRN (18:08)
[2016-12-05 22:30] LABS: POTASSIUM 3.7 mEq/L (3.5-5.2)
[2016-12-05] MEDS: SENNOSIDES/DOCUSATE SODIUM TAB PO SCH (22:54)
[2016-12-05] MEDS ORDERED: POTASSIUM Cl (KCl) 100 ML IV SCH (23:03)
[2016-12-05] MEDS: POTASSIUM Cl (KCl) 100 ML IV SCH (23:29)
[2016-12-06] MEDS: POTASSIUM Cl (KCl) 100 ML IV SCH ×7 (01:05→22:39)
[2016-12-06] MEDS: hydrALAZINE 20 MG/ML VIAL IVP PRN ×2 (03:49→20:04)
[2016-12-06] MEDS: oxyCODONE IR 5 MG TAB TUBE PRN ×4 (04:22→19:48)
[2016-12-06 05:48] LABS: POTASSIUM 3.6 mEq/L (3.5-5.2)
[2016-12-06] MEDS: ACETAMINOPHEN 500 MG TAB TUBE SCH ×3 (08:08→21:56)
[2016-12-06] MEDS: VENLAFAXINE HCL 75 MG TAB TUBE SCH ×2 (08:09→19:48)
[2016-12-06] MEDS: GABAPENTIN 300 MG CAP TUBE SCH (08:09)
[2016-12-06] MEDS: HYDROCHLOROTHIAZIDE 25 MG TAB TUBE SCH (08:09)
[2016-12-06] MEDS: ENOXAPARIN 40 MG/0.4 ML SYR SC SCH (08:10)
[2016-12-06] MEDS: LISINOPRIL 10 MG TAB TUBE SCH (08:10)
[2016-12-06] MEDS: METHOCARBAMOL 750 MG TAB TUBE PRN ×2 (08:10→19:48)
[2016-12-06] MEDS: SENNOSIDES/DOCUSATE SODIUM TAB PO SCH ×2 (08:10→19:48)
[2016-12-06] MEDS: POLYETHYLENE GLYCOL 3350 17 GM PKT TUBE SCH ×3 (08:11→21:57)
[2016-12-06] MEDS: FAMOTIDINE 20 MG/NACL 50 ML IV SCH ×2 (08:29→19:47)
--- NOTE | 2016-12-06 09:37 | HOSPPROG ---
Hospitalist Progress Note Assessment/Plan: 60 yo female visiting her daughter from [place], [place] and after obtaining a 3rd neurosurgical opinion from Dr. Cueva, underwent C4-6 A/P fusion and has developed dysphagia and aspiration requiring PEG placement and tube feeds. #Dysphagia: due to post-op prevertebral edema. PEG placed 12/04 (IR unable to place dobhoff). Tube feeds started last night. Hopefully her edema and swallow function will improve. Speech following. #Acute neck pain: POD #7 C4-6 A/P fusion - collar in place. 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 #Depression: cont Effexor (changed to quick-release for PEG) per tube #Valvular disease: mitral regurgitation per her report. Euvolemic. Careful with IVFs. OSH records pending #GERD: Famotidine #Diet: tube feeds, cont speech therapy #DVT px: SCDs #Disp: Please call if questions. Subjective: Pt is tired. No complaints today, feels a bit better. Objective: Vital Signs Temp Pulse Resp BP Pulse Ox 36.0 C 84 18 147/68 H 96 12/06/16 07:40 12/06/16 07:40 12/06/16 07:40 12/06/16 08:10 12/06/16 07:40 Laboratory Results 12/04/16 06:25 12/06/16 05:20 12/05/16 12/06/16 12/07/16 05:59 05:59 05:59 Intake Total 400 590 Output Total 305 400 Balance 95 190 - Physical Exam Constitutional: no apparent distress Eyes: PERRL Ears, Nose, Mouth, Throat: moist mucous membranes Cardiovascular: regular rate and rhythym Respiratory: no respiratory distress Gastrointestinal: normoactive bowel sounds, soft, non-tender abdomen Skin: warm Musculoskeletal: full muscle strength Neurologic: AAOx3 Psychiatric: interacting appropriately ICD10 Worksheet Patient Problems: Problems Problem Status Onset Fusion of spine of cervical region Acute
--- NOTE | 2016-12-06 10:15 | NEUSURGPN ---
Assessment/Plan: Assessment: 60 yo female POD #8 sp C4-6 A/P cervical fusion. doing OK but unable to swallow, speech following PEG placed by IR on 12/04 pain controlled Neuro intact and stable Plan: Patient was having increase nausea this am, discussed with nurse Continue hard collar PT/OT as tolerated HTN per medicine Once tolerating tube feeds and cleared by medicine work towards SNF/rehab placement Subjective: Nausea Objective: NAD Neck soft supple, no edema. Incision c/d/i. MAEx4 Catheter Insertion Date: 11/28/16 - Physician Discussed Patient with : Dede Neurosurgery Physical Exam - Vitals, I&O, Labs I and O 12/05/16 12/06/16 12/07/16 05:59 05:59 05:59 Intake Total 400 590 Output Total 305 400 Balance 95 190 Weight 58.967 kg Intake: Oral (ml) 0 IV Intake (ml) 400 Tube Feeding (ml) 440 Tube Flush (ml) 150 Output: Urine (ml) 300 400 Bedside Commode 400 Toilet 300 Estimated Blood Loss (ml) 5 PEG Tube Output (ml) 0 PEG 0 Other: Intake Quantity Yes Sufficient Number of Voids Toilet 1 1 1 Number of Stools Toilet 1 Vital Signs Temp Pulse Resp BP Pulse Ox 36.0 C 84 18 147/68 H 96 12/06/16 07:40 12/06/16 07:40 12/06/16 07:40 12/06/16 08:10 12/06/16 07:40 Laboratory Results 12/04/16 06:25 12/06/16 05:20 ICD10 Worksheet Patient Problems: Problems Problem Status Onset Fusion of spine of cervical region Acute
[2016-12-06] MEDS ORDERED: POTASSIUM Cl (KCl) 100 ML IV ONE (15:00)
[2016-12-06 19:35] LABS: POTASSIUM 3.4 mEq/L (3.5-5.2)
[2016-12-06] MEDS: NS 1,000 ML IV SCH (19:49)
[2016-12-07 03:32] VITALS: RESP 16
[2016-12-07] MEDS: METHOCARBAMOL 750 MG TAB TUBE PRN ×2 (03:34→12:41)
[2016-12-07] MEDS: oxyCODONE IR 5 MG TAB TUBE PRN ×2 (03:34→12:42)
[2016-12-07] MEDS: hydrALAZINE 20 MG/ML VIAL IVP PRN (03:34)
[2016-12-07] MEDS: ACETAMINOPHEN 500 MG TAB TUBE SCH ×2 (06:11→16:00)
[2016-12-07 07:45] VITALS: O2SAT 95
[2016-12-07] MEDS: LISINOPRIL 10 MG TAB TUBE SCH (08:19)
[2016-12-07] MEDS: HYDROCHLOROTHIAZIDE 25 MG TAB TUBE SCH (08:19)
[2016-12-07] MEDS: SENNOSIDES/DOCUSATE SODIUM TAB PO SCH (08:19)
[2016-12-07] MEDS: GABAPENTIN 300 MG CAP TUBE SCH (08:19)
[2016-12-07] MEDS: POLYETHYLENE GLYCOL 3350 17 GM PKT TUBE SCH (08:20)
[2016-12-07] MEDS: FAMOTIDINE 20 MG/NACL 50 ML IV SCH (08:20)
[2016-12-07] MEDS: VENLAFAXINE HCL 75 MG TAB TUBE SCH (08:20)
[2016-12-07] MEDS: ENOXAPARIN 40 MG/0.4 ML SYR SC SCH (08:20)
[2016-12-07] MEDS ORDERED: FAMOTIDINE 20 MG TAB TUBE SCH (09:00)
[2016-12-07] MEDS ORDERED: LISINOPRIL 10 MG TAB TUBE SCH (09:15)
[2016-12-07] MEDS: ONDANSETRON 4 MG/2 ML VIAL IVP PRN (09:23)
[2016-12-07 11:19] VITALS: BP 141/75; PULSE 82; TEMP 98.2
--- NOTE | 2016-12-07 12:40 | NEUSURGPN ---
Date of Surgery: 11/28/16 Post Op Day: 9 Assessment/Plan: Assessment: 60 yo female POD #8 sp C4-6 A/P cervical fusion. doing OK but unable to swallow, speech following PEG placed by IR on 12/04 pain controlled Neuro intact and stable Plan: Continue hard collar PT/OT as tolerated HTN per medicine Once tolerating tube feeds and cleared by medicine work towards SNF/rehab placement Subjective: Still having some nausea and emesis apparently from GI irritation d/t tube feeds. Objective: AAOx3 NAD Neck soft supple, no edema. Incision c/d/i. MAEx4 10/18= BUE, BLE Catheter Insertion Date: 11/28/16 - Physician Discussed Patient with : Dede Neurosurgery Physical Exam - Vitals, I&O, Labs I and O 12/06/16 12/07/16 12/08/16 05:59 05:59 05:59 Intake Total 590 810 Output Total 400 Balance 190 810 Intake: Oral (ml) 0 IV Infused (ml) 350 Famotidine 20 mg/NaCl 50 50 ml @ 200 mls/hr IV Q12 [facility] Rx#:[id number] POTASSIUM Cl (KCl) 100 ml 300 @ 100 mls/hr IV Q1H [facility] Rx#:[id number] Tube Feeding (ml) 440 220 Tube Flush (ml) 150 240 Output: Urine (ml) 400 Bedside Commode 400 Other: Number of Voids Bedside Commode 2 Incontinence 3 Toilet 1 2 Number of Stools Toilet 1 Vital Signs Temp Pulse Resp BP Pulse Ox 36.8 C 82 16 141/75 H 95 12/07/16 11:18 12/07/16 11:18 12/07/16 11:18 12/07/16 11:18 12/07/16 11:18 Laboratory Results 12/04/16 06:25 12/07/16 03:45 ICD10 Worksheet Patient Problems: Problems Problem Status Onset Fusion of spine of cervical region Acute
--- NOTE | 2016-12-07 13:49 | HOSPPROG ---
Hospitalist Progress Note Assessment/Plan: * Cervical stenosis with cord compression s/p cervical fusion * Dysphagia s/p PEG -N/V this am - suspect bolus feeds -consult dietary - frequent smaller meals * HTN -home meds -increase lisinopril * Depression -change Effexor to quick release through PEG * Valvular heart disease -details unclear, but appears stable Subjective: N/V this am - all of her AM bolus TF. Yesterday was great day and thought she would go home today Objective: Vital Signs Temp Pulse Resp BP Pulse Ox 36.8 C 82 16 141/75 H 95 12/07/16 11:18 12/07/16 11:18 12/07/16 11:18 12/07/16 11:18 12/07/16 11:18 Laboratory Results 12/04/16 06:25 12/07/16 03:45 12/06/16 12/07/16 12/08/16 05:59 05:59 05:59 Intake Total 590 810 Output Total 400 Balance 190 810 d/w neurosurgery PA - okay for discharge if tolerating TF without N/V - continue BP meds at previous home dose CXR - unremarkable - Physical Exam Constitutional: no apparent distress, appears nourished, not in pain Cardiovascular: regular rate and rhythym, no murmur, rub, or gallop Respiratory: no respiratory distress, no rales or rhonchi, clear to auscultation Gastrointestinal: normoactive bowel sounds, soft, non-tender abdomen, no palpable masses Skin: no rashes or abrasions, no fluctuance, no induration Neurologic: AAOx3, sensation intact bilaterally Psychiatric: interacting appropriately, not anxious, not encephalopathic, thought process linear ICD10 Worksheet Patient Problems: Problems Problem Status Onset Fusion of spine of cervical region Acute
[2016-12-07] MEDS ORDERED: HYDROmorphONE/DILAUDID 6 MG/30 ML PCA IV PRN (13:50)
[2016-12-07] MEDS ORDERED: oxyCODONE IR 5 MG TAB TUBE PRN (13:52)
--- NOTE | 2016-12-07 15:36 | PDIAF ---
- Diagnosis Code Status: Full Code - Medication Management Discharge Medications: Medications to Continue on Transfer Gabapentin [Neurontin 300 MG (*)] 300 mg PO DAILY 11/29/16 [Last Taken Unknown] Hydrochlorothiazide [HCTZ (*)] 25 mg PO DAILY 11/29/16 [Last Taken Unknown] Lisinopril [Zestril 10 mg (*)] 10 mg PO DAILY 11/29/16 [Last Taken Unknown] Omeprazole [Prilosec 20 mg] 20 mg PO DAILY PRN 11/29/16 [Last Taken Unknown] Ranitidine HCl [Taladine] 150 mg PO DAILY PRN 11/29/16 [Last Taken Unknown] Venlafaxine HCl [Venlafaxine HCl ER] 150 mg PO DAILY 11/29/16 [Last Taken Unknown] amLODIPine BESYLATE [Norvasc 10 mg (*)] 10 mg PO DAILY 11/29/16 [Last Taken Unknown] hydrOXYzine HCL [hydrOXYzine HCL (RX)] 25 mg PO HS PRN 11/29/16 [Last Taken Unknown] Acetaminophen [Tylenol ES 500 mg (*)] 1,000 mg TUBE Q8H #0 tab 12/07/16 [Last Taken Unknown] Methocarbamol [Robaxin 750 mg (*)] 750 mg TUBE QID PRN #0 tab 12/07/16 [Last Taken Unknown] Polyethylene Glycol 3350 [Miralax 17 gm (*)] 17 gm TUBE TID #0 pkt 12/07/16 [ Last Taken Unknown] Sennosides/Docusate Sodium [Senokot-S] 1 - 2 tab PO BID #0 tab 12/07/16 [Last Taken Unknown] oxyCODONE IR [Oxycodone Ir (*)] 5 - 10 mg TUBE Q4HRS PRN #0 tab 12/07/16 [Last Taken Unknown] Discharge Medications: Refer to the Discharge Home Medication list for PRN reason. - Orders Services needed: Home Care, Registered Nurse, Speech Language Pathologist Home Care Face to Face: I certify that this patient was under my care and that I had the required [id number] encounter meeting the encounter requirements on the discharge day. My findings support the fact that the patient is homebound as defined in CMS Chapter 7 Medicare Benefits Manual 30.1.1, The condition of the patient is such that there exists a normal inability to leave home and consequently, leaving home would require a considerable and taxing effort. Diet Recommendation: other Diet Texture: No Oral Liquids, Oral Feeding with Speech Pathologist Only, Non Oral Meds Tube feeding: dietary recs have been made, home health care to manage - Follow Up Care Current Providers and Referrals: HIGINIO SERNA [Other]
== END 2016-12-07 17:23 | disposition home health service (06) | DRG 455 ==
LOC: F3E 09:54 → F2N 17:39 → F3N 12-03 12:52 → UNDODISIN 12-07 14:10
PROVIDERS: ADMIT Neurological Surgery; ATTEND Neurological Surgery
PROC: 0RT30ZZ Resection of Cervical Vertebral Disc, Open Approach (ICD-10-PCS; principal; 2016-11-28 11:45)
PROC: 0RG20AJ Fusion of 2 or more Cervical Vertebral Joints with Interbody Fusion Device, Posterior Approach, Anterior Column, Open Approach (ICD-10-PCS; principal; 2016-11-28 11:45)
PROC: 00NW0ZZ Release Cervical Spinal Cord, Open Approach (ICD-10-PCS; principal; 2016-11-28 11:45)
PROC: 0RG20A0 Fusion of 2 or more Cervical Vertebral Joints with Interbody Fusion Device, Anterior Approach, Anterior Column, Open Approach (ICD-10-PCS; principal; 2016-11-28 11:45)
PROC: 02HV33Z Insertion of Infusion Device into Superior Vena Cava, Percutaneous Approach (ICD-10-PCS; 2016-12-02)
PROC: 0D163J4 Bypass Stomach to Cutaneous with Synthetic Substitute, Percutaneous Approach (ICD-10-PCS; 2016-12-04)
DX: M47.12 Other spondylosis with myelopathy, cervical region (principal); M51.36 Other intervertebral disc degeneration, lumbar region; I10 Essential (primary) hypertension; R13.10 Dysphagia, unspecified; K21.9 Gastro-esophageal reflux disease without esophagitis; E87.6 Hypokalemia; I25.10 Atherosclerotic heart disease of native coronary artery without angina pectoris
CPT/HCPCS: 92526-GN; 92610-GN; 92611-GN; 97116-GP; 97161-GP; 97165-GO; 97530-GO; 97535-GO; C1713; C1751; C1769; J0360; J0690; J1170; J1200; J1650; J2250; J2370; J2405; J2704; J2997; J3010; J7060; P9041

== ENCOUNTER → 2017-06-13 | Outpatient (CLI) | payer OTHER, BC | LOC: FIMAGING 12:45 | PROVIDERS: ATTEND Physician Assistant Surgical | DX: Z09 Encounter for follow-up examination after completed treatment for conditions other than malignant neoplasm (principal); Z98.1 Arthrodesis status ==